=== PATIENT | female | born 1995 | race African-American/Black ===

== ENCOUNTER 2018-04-10 14:00 | Emergency (ER) | payer OTHER ==
[~2018-04-10] VITALS: Ht 152.4 cm; Wt 56.7 kg
[2018-04-10 14:49] LABS: ABSOLUTE NEUTROPHILS 10.3 thou/uL (1.4-8.2); BASOPHILS 0.4 % (0.0-2.0); EOSINOPHILS 0.2 % (0.0-3.0); HEMATOCRIT 41.1 % (37.0-47.0); HEMOGLOBIN 14.4 gm/dL (12.0-15.0); LYMPHOCYTES 8.9 % (24.0-44.0); MCH 31.8 pg (26.0-34.0); MCHC 34.9 g/dL (28.0-37.0); PLATELET COUNT 243 thou/uL (150-400); POLYS 86.5 % (36.0-66.0); RBC 4.52 mil/uL (4.20-5.00); RDW 12.6 % (10.5-14.5); WBC 11.9 thou/uL (4.0-11.0)
[2018-04-10 14:59] LABS: CALCIUM 9.1 mg/dL (8.5-10.1); CREATININE 0.9 mg/dL (0.6-1.0); POTASSIUM 3.4 mmol/L (3.5-5.1)
[2018-04-10 15:05] LABS: ALBUMIN 4.7 g/dL (3.4-5.0); DIRECT BILIRUBIN 0.1 mg/dL (<0.1-0.3); TOTAL BILIRUBIN 0.5 mg/dL (<0.1-1.0); TOTAL PROTEIN 7.5 g/dL (6.4-8.2)
[2018-04-10 15:28] LABS: URINE BILIRUBIN NEGATIVE (Negative); URINE BLOOD NEGATIVE (Negative); URINE CLARITY CLEAR; URINE COLOR YELLOW; URINE GLUCOSE-RANDOM* NEGATIVE (Negative); URINE KETONES 2+ (Negative); URINE LEUKOCYTES NEGATIVE (Negative); URINE NITRITE NEGATIVE (Negative); URINE PROTEIN (DIPSTICK) NEGATIVE (Negative); URINE SPECIFIC GRAVITY >= 1.030 (1.005-1.035); URINE UROBILINOGEN 0.2 E.U./dl (0.2-1.0)
[2018-04-10] MEDS ORDERED: PROMS25 WY RECTAL (15:28)
[2018-04-10] MEDS ORDERED: PHENERGAN 25 MG25 M1 PO (15:28)
[2018-04-10] MEDS ORDERED: ZOFRAN ODT4 MG PO (15:28)
[2018-04-10] MEDS ORDERED: CITRATE OF MAG296 ML PO (16:01)
[2018-04-10 16:33] VITALS: BP 120/59
== END 2018-04-10 16:35 | disposition home or self-care (01) ==
LOC: ER 14:00
PROVIDERS: Emergency Medicine
DX: K59.00 Constipation, unspecified (principal); R11.2 Nausea with vomiting, unspecified; Z88.1 Allergy status to other antibiotic agents